=== PATIENT | female | born 1950 | race Caucasian/White ===

== ENCOUNTER → 2018-01-21 | Outpatient (CLI) | payer OTHER ==
[~2018-01-21] MED LIST: AMARYL4 MG PO; ASPIR-TRIN325 MG PO; CIPRODEX OTIC7.5 ML OTIC; COZAAR 25 MG TA25 M1 PO; FENOFIBRATE160 MG PO; GLUCOPHAGE XR500 M1; JANUVIA100 MG; SERTRALINE HCL50 MG; SIMVASTATIN40 MG
--- NOTE | ~2018-01-21 | 2DMMODE ---
[facility] [place] [place] [address] 2 D/M-MODE ECHOCARDIOGRAM Name: ALPHONSO AUSTIN Room #: [facility]#: [id number] Admission: 01/21/18 Attend Phys: Boy Rogel MD Discharge: Date of : 46 Date of Service: 01/21/18 1314 Report #: [id number] THIS REPORT FOR: //name// APPROVED REPORT Study performed: 01/21/2018 11:00:49 EXAM: Comprehensive 2D, Doppler, and color-flow Echocardiogram Patient Location: Out-Patient Status: routine BSA: 1.61 HR: 60 bpm BP: 150/70 mmHg Other Information Study Quality: Good Indications Diabetes CAD Hypertension/HDD 2D Dimensions RVDd: 26.04 mm IVSd: 12.65 (7-11mm) LVOT Diam: 18.69 (18-24mm) LVDd: 48.67 mm PWd: 13.03 (7-11mm) Ascending Ao: 30.12 (22-36mm) LVDs: 33.75 (25-40mm) Aortic Root: 27.12 mm IVC: 18.00 mm Volumes Left Atrial Volume (Systole) Single Plane 4CH: 29.28 mL Single Plane 2CH: 59.50 mL LA ESV Index: 29.00 mL/m2 Aortic Valve AoV Peak Pravin.: 1.73 m/s AO Peak Gr.: 11.94 mmHg LVOT Max P.02 mmHg LVOT Max V: 1.00 m/s KELLY Vmax: 1.59 cm2 AI Vmax: 4.58 m/s AI [place]: 2.78 m/s2 AI PHT: 477.72 ms [facility] [place] [address] 2 D/M-MODE ECHOCARDIOGRAM Name: ALPHONSO AUSTIN Room #: [facility]#: [id number] Admission: 01/21/18 Attend Phys: Boy Rogel MD Discharge: Date of : 46 Date of Service: 01/21/18 1314 Report #: [id number] Mitral Valve E/A Ratio: 0.6 MV Decel. Time: 240.85 ms MV E Max Pravin.: 0.76 m/s MV A Pravin.: 1.30 m/s MV PHT: 69.85 ms IVRT: 110.73 ms Pulmonary Valve PV Peak Pravin.: 1.07 m/s PV Peak Gr.: 4.56 mmHg Pulmonary Vein P Vein S: 0.65 m/s P Vein A: 0.21 m/s P Vein D: 0.42 m/s P Vein A Dur.: 107.3 msec P Vein S/D Ratio: 1.55 Tricuspid Valve TR Peak Pravin.: 2.20 m/s RAP Estimate: 5.00 mmHg TR Peak Gr.: 19.40 mmHg PA Pressure: 24.00 mmHg Left Ventricle The left ventricle is normal size. Mild concentric left ventricular hypertrophy. The left ventricular systolic function is normal. The left ventricular ejection fraction is within the normal range. LVEF is 55-60%. Mild diastolic dysfunction is present (impaired relaxation pattern). Right Ventricle The right ventricle is normal size. The right ventricular systolic function is normal. Atria The left atrium size is normal. The right atrium size is normal. Aortic Valve The aortic valve is normal in structure. Mild aortic regurgitation. There is no aortic valvular stenosis. Mitral Valve The mitral valve is normal in structure. Mild to moderate mitral regurgitation. No evidence of mitral valve stenosis. Tricuspid Valve The tricuspid valve is normal in structure. Trace tricuspid [facility] [address] [address] 2 D/M-MODE ECHOCARDIOGRAM Name: ALPHONSO AUSTIN Room #: [facility]#: [id number] Admission: 01/21/18 Attend Phys: Boy Rogel MD Discharge: Date of : 46 Date of Service: 01/21/18 1314 Report #: [id number] regurgitation. PAP is estimated at 24 mmHg. Pulmonic Valve The pulmonary valve is normal in structure. There is no pulmonic valvular regurgitation. Great Vessels The aortic root is normal in size. IVC is normal in size and collapses >50% with inspiration. Pericardium There is no pericardial effusion. <Conclusion> The left ventricle is normal size. Mild concentric left ventricular hypertrophy. The left ventricular systolic function is normal. Mild diastolic dysfunction is present (impaired relaxation pattern). The right ventricle is normal size. The left atrium size is normal. Mild aortic regurgitation. Mild to moderate mitral regurgitation. Trace tricuspid regurgitation. PAP is estimated at 24 mmHg. <ELECTRONICALLY SIGNED> By: Boy Rogel MD 01/21/184 13 13 Boy Rogel MD /INF
== END ==
LOC: CV 10:06
DX: I08.0 Rheumatic disorders of both mitral and aortic valves (principal); I10 Essential (primary) hypertension; I25.10 Atherosclerotic heart disease of native coronary artery without angina pectoris; E11.9 Type 2 diabetes mellitus without complications; E78.5 Hyperlipidemia, unspecified; Z87.891 Personal history of nicotine dependence; Z79.4 Long term (current) use of insulin

== ENCOUNTER → 2019-04-17 | Outpatient (CLI) | payer OTHER | LOC: SJCVC 09:36 | DX: R94.31 Abnormal electrocardiogram [ECG] [EKG] (principal); I10 Essential (primary) hypertension; I25.10 Atherosclerotic heart disease of native coronary artery without angina pectoris; E11.9 Type 2 diabetes mellitus without complications; E78.00 Pure hypercholesterolemia, unspecified; Z72.0 Tobacco use; Z79.82 Long term (current) use of aspirin; Z79.84 Long term (current) use of oral hypoglycemic drugs; Z79.899 Other long term (current) drug therapy ==

== ENCOUNTER → 2019-11-12 | Outpatient (CLI) | payer OTHER | LOC: SJCVCIMAG 10-16 09:32 | PROVIDERS: ATTEND Internal Medicine Cardiovascular Disease | DX: I08.3 Combined rheumatic disorders of mitral, aortic and tricuspid valves (principal); R94.31 Abnormal electrocardiogram [ECG] [EKG]; R00.1 Bradycardia, unspecified; I11.9 Hypertensive heart disease without heart failure; I25.10 Atherosclerotic heart disease of native coronary artery without angina pectoris; E78.00 Pure hypercholesterolemia, unspecified; E11.9 Type 2 diabetes mellitus without complications; Z79.899 Other long term (current) drug therapy ==

== ENCOUNTER → 2020-05-17 | Outpatient (CLI) | payer OTHER | LOC: SJCVCIMAG 08:11 | PROVIDERS: ATTEND Internal Medicine Cardiovascular Disease | DX: I25.10 Atherosclerotic heart disease of native coronary artery without angina pectoris (principal); E78.5 Hyperlipidemia, unspecified; E11.9 Type 2 diabetes mellitus without complications; I10 Essential (primary) hypertension; E78.00 Pure hypercholesterolemia, unspecified; R10.9 Unspecified abdominal pain; R06.00 Dyspnea, unspecified; F17.200 Nicotine dependence, unspecified, uncomplicated; Z79.82 Long term (current) use of aspirin; Z79.899 Other long term (current) drug therapy; Z95.1 Presence of aortocoronary bypass graft; Z88.2 Allergy status to sulfonamides; Z88.0 Allergy status to penicillin; Z88.1 Allergy status to other antibiotic agents ==

== ENCOUNTER → 2020-05-24 | Outpatient (CLI) | payer OTHER ==
[~2020-05-24] VITALS: Ht 154.9 cm; Wt 59.4 kg
[~2020-05-24] MED LIST changes: +ACTOS 30 MG TAB30 MG PO; +HYDROCHLOROTHIA25 M1 PO; +LOPRESSOR50 MG PO
[2020-05-24 08:04] VITALS: BP 172/69
--- NOTE | 2020-05-24 10:55 | CATHLAB ---
[facility] [place] [address] INVASIVE PROCEDURE REPORT Name: ALPHONSO AUSTIN Room #: REG [facility]#: [id number] Admission: 05/24/20 Attend Phys: Boy Rogel MD Discharge: Date of : 46 Report #: [id number] THIS REPORT FOR: cc: Liv Mendieta MD, Sharon R. MD Park, Jin S. MD ~ APPROVED REPORT Study performed: 05/24/2020 08:42:32 Patient Details Patient Status: Out-Patient Room #: The patient is a 69 year-old female Event Personnel Boy Rogel Electrical Engineering Teacher, Staci Dubon RTR Monitor, Sherwin Chacon RTR Scrub, Ashly Ash RN combination window installer Performed Art Access - R femoral artery* Left Heart Cath Coronaries, Bypass Grafts 4838022 LHCCORCABG Hemostasis with Manual pressure 80991 Initial Mod Sed Same Phys/QHP Gr5y 651632 61398 Mod Sed Same Phys/QHP Ea [id number] Indication Dyspnea, Positive stress test Risk Factors Hypercholesterolemia, Coronary Artery DiseaseHypertension, Diabetes Tobacco History () Previous Procedures/Diagnoses Previous CABG Procedure Narrative The Right Groin^ was infiltrated with 1% Lidocaine subcutaneous anesthesia. A PINNACLE 4FR Sheath #[id number] sheath was inserted into the RFA^. Coronary angiography was performed using coronary diagnostic catheters. The right coronary system was accessed and visualized with a JR4 catheter. The left coronary system was accessed and visualized with a JL4 catheter. The left ventricle was accessed and visualized with a PIGTAIL catheter. Hemostasis was obtained with manual pressure following sheath removal without any complications. The patient tolerated the procedure well and there were no [facility] [address] [place] [address] INVASIVE PROCEDURE REPORT Name: ALPHONSO AUSTIN Room #: REG [facility]#: [id number] Admission: 05/24/20 Attend Phys: Boy Rogel MD Discharge: Date of : 46 Report #: [id number] complications associated with the procedure. There was no hematoma. Intraoperative Conscious Sedation Sedation start time: 905 Case end Time: 939 Fentanyl 50 mcg Versed 1 mg Fluoro Time: 5.40 minutes Dose: DAP 4717.90 cGycm2 675 mGy Contrast Type and Amount: Omnipaque 50 ml Coronary Angiography The patient's coronary anatomy is co- dominant. [place] Artery Percent Stenosis Left Main: % Prox LAD: 100 % Mid/Distal LAD: % Circumflex: 100 % RCA: 100 % Ramus: % Diagnostic Cath LAD There is a patent CAMARILLO graft with an end-to-side anastomosis to the mid LAD. The mid and distal elem LAD is patent with no flow-limiting lesions. Diagonal 1 There is a patent sequential SVG with a [id number]-kg-[id number] anastomosis to D1 and end-to-side anastomosis to OM 2. There is a mild stenosis in the midsegment of the vein graft. Circumflex The left circumflex artery is codominant. This vessel is totally occluded in the midsegment, supplies OM1 prior to the obstruction. OM1 This vessel is patent with no flow-limiting lesions. OM2 This vessel is filled from the sequential SVG to D1/OM 2. Right Coronary The SVG to the distal RCA is completely occluded. R PDA This vessel fills via collateral circulation. Left Ventriculography Left Ventriculography was not performed. Ejection Fraction was 55-60% based off patient's Nuclear Cardiac Stress Test. An LVEDP was measured and there is no gradient across the outflow tract. Hemodynamics The aortic pressure is 174/75 mmHg with a mean of 102 mmHg. The left ventricular pressure is 184/15 mmHg with a mean of mmHg. The left ventricular end diastolic pressure is 16 mmHg. Conclusion [facility] [address] [place] [address] INVASIVE PROCEDURE REPORT Name: ALPHONSO AUSTIN Nia Room #: REG [facility]#: [id number] Admission: 05/24/20 Attend Phys: Boy Rogel MD Discharge: Date of : 46 Report #: [id number] 1. There is a patent CAMARILLO graft to the LAD. 2. There is a patent sequential SVG to the first Diagonal artery and second OM artery. 3. The left circumflex artery is a codominant vessel, fills OM1 with no flow-limiting lesions. 4. The SVG to the distal RCA is occluded. The PDA is filled via collateral circulation. 5. There is normal LV systolic function. 6. Recommend guideline directed medical therapy and risk factor management. <ELECTRONICALLY SIGNED> By: Boy Rogel MD 05/24/20 1055 1055 1055 Boy Rogel MD /INF
== END | disposition home or self-care (01) ==
LOC: CATH 07:32
PROVIDERS: ATTEND Internal Medicine Cardiovascular Disease
DX: R94.39 Abnormal result of other cardiovascular function study (principal); R06.00 Dyspnea, unspecified; I25.810 Atherosclerosis of coronary artery bypass graft(s) without angina pectoris; I25.2 Old myocardial infarction; I10 Essential (primary) hypertension; E78.00 Pure hypercholesterolemia, unspecified; E11.9 Type 2 diabetes mellitus without complications; F17.210 Nicotine dependence, cigarettes, uncomplicated; Z98.890 Other specified postprocedural states; Z79.899 Other long term (current) drug therapy; Z95.1 Presence of aortocoronary bypass graft; Z88.0 Allergy status to penicillin; Z88.2 Allergy status to sulfonamides

== ENCOUNTER 2020-05-28 19:21 | Emergency (ER) | payer OTHER ==
[~2020-05-28] VITALS: Ht 154.9 cm; Wt 59.4 kg
[2020-05-28] MEDS ORDERED: BENADRYL25 MG PO (20:45)
[2020-05-28] MEDS ORDERED: PREDNISONE 20 M20 MG PO (20:45)
[2020-05-28 20:56] VITALS: BP 121/73
== END 2020-05-28 20:56 | disposition home or self-care (01) ==
LOC: ER 19:21
DX: T78.40XA Allergy, unspecified, initial encounter (principal); I10 Essential (primary) hypertension; E11.9 Type 2 diabetes mellitus without complications; F17.210 Nicotine dependence, cigarettes, uncomplicated; Z79.84 Long term (current) use of oral hypoglycemic drugs; Z79.82 Long term (current) use of aspirin; Z79.899 Other long term (current) drug therapy; Z88.0 Allergy status to penicillin; Z88.2 Allergy status to sulfonamides; Y92.89 Other specified places as the place of occurrence of the external cause

== ENCOUNTER → 2020-12-17 | Outpatient (CLI) | payer OTHER ==
[~2020-12-17] MED LIST changes: +BENADRYL25 MG PO; +PREDNISONE 20 M20 MG PO
== END ==
LOC: SJCVC 10:31
PROVIDERS: ATTEND Internal Medicine Cardiovascular Disease
DX: R94.31 Abnormal electrocardiogram [ECG] [EKG] (principal); I10 Essential (primary) hypertension; I25.10 Atherosclerotic heart disease of native coronary artery without angina pectoris; E11.9 Type 2 diabetes mellitus without complications; E78.00 Pure hypercholesterolemia, unspecified; F17.200 Nicotine dependence, unspecified, uncomplicated; Z82.49 Family history of ischemic heart disease and other diseases of the circulatory system; Z88.0 Allergy status to penicillin; Z88.2 Allergy status to sulfonamides; Z88.8 Allergy status to other drugs, medicaments and biological substances; Z79.82 Long term (current) use of aspirin; Z79.84 Long term (current) use of oral hypoglycemic drugs; Z79.899 Other long term (current) drug therapy

== ENCOUNTER 2021-03-18 21:59 | Inpatient (IN) | payer OTHER ==
[~2021-03-18] VITALS: Ht 160 cm; Wt 57.2 kg
[2021-03-18 22:00] VITALS: BP 228/97
[2021-03-18 22:26] LABS: ABSOLUTE NEUTROPHILS 6.5 thou/uL (1.4-8.2); BASOPHILS 0.7 % (0.0-2.0); EOSINOPHILS 2.7 % (0.0-3.0); HEMATOCRIT 45.7 % (37.0-47.0); HEMOGLOBIN 15.3 gm/dL (12.0-15.0); LYMPHOCYTES 24.4 % (24.0-44.0); MCH 29.1 pg (26.0-34.0); MCHC 33.5 g/dL (28.0-37.0); MONOCYTES 7.7 % (1.0-8.0); PLATELET COUNT 237 thou/uL (150-400); POLYS 64.5 % (36.0-66.0); RBC 5.25 mil/uL (4.20-5.00)
[2021-03-18 22:36] LABS: CALCIUM 9.7 mg/dL (8.5-10.1); CREATININE 1.1 mg/dL (0.6-1.0); POTASSIUM 3.5 mmol/L (3.5-5.1)
[2021-03-18 22:47] LABS: ALBUMIN 4.2 g/dL (3.4-5.0); MAGNESIUM 1.8 mg/dL (1.8-2.4); TOTAL BILIRUBIN 0.5 mg/dL (0.2-1.0); TOTAL PROTEIN 7.4 g/dL (6.4-8.2)
--- NOTE | 2021-03-18 23:59 | NUR ---
CELI AT BEDSIDE. CAN BE REACHED AT [phone]
[2021-03-19] MEDS ORDERED: fenofibrate PO (00:06)
[2021-03-19] MEDS ORDERED: METFORMIN PO (00:07)
[2021-03-19] MEDS ORDERED: ZOLOFT50 M1 PO (00:07)
[2021-03-19] MEDS ORDERED: GLIMEPIRIDE1 MG PO (00:08)
[2021-03-19 05:14] LABS: CHOLESTEROL 125 mg/dL (<200); HDL CHOLESTEROL 52 mg/dL (>40); LDL CHOLESTEROL 51 mg/dL (<100); TC:HDL 2.4 Ratio (Not establshd); TRIGLYCERIDE 111 mg/dL (<150); VLDL 22 mg/dL (<40)
[2021-03-19 05:15] LABS: SERUM ASSESSMENT Clear
[2021-03-19 09:30] VITALS: BP 149/100
--- NOTE | 2021-03-19 11:30 | EKG ---
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1950 Requested By: Delilah Robbins Order Number: [id number] MD: Boy Rogel Measurements Intervals [place] Rate: 72 P: 31 NM: 136 QRS: 35 QRSD: 104 T: 22 QT: 405 QTc: 444 Interpretive Statements Sinus rhythm Multiform ventricular premature complexes Probable left atrial enlargement Borderline repolarization abnormality Compared to ECG 07/03/2014 09:46:49 Ventricular premature complex(es) now present T-wave abnormality no longer present Prolonged QT interval no longer present Electronically Signed On 03-19-2021 11:30:33 [employer]OD AND BEVERAGE CONTROLLER by Boy Rogel [email or web address] <ELECTRONICALLY SIGNED> By: Boy Rogel MD 03/19/21 1130 04 04 Boy Rogel MD /[facility]
[2021-03-19 12:00] VITALS: BP 160/64
--- NOTE | 2021-03-19 12:45 | 2DMMODE ---
[facility] [place] [address] 2 D/M-MODE ECHOCARDIOGRAM Name: ADAMARIS AUSTINFANY Trimble Room #: 200-I ADM IN .R.#: [id number] Admission: 03/18/21 Attend Phys: Eddie Guadalupe MD Discharge: Date of : 46 Report #: [id number] THIS REPORT FOR: cc: Liv Mendieta MD, Sharon R. MD Park, Jin S. MD ~ APPROVED REPORT Study performed: 03/19/2021 10:12:09 EXAM: Comprehensive 2D, Doppler, and color-flow Echocardiogram Patient Location: In-Patient Room #: 200 Status: stat BSA: 1.59 HR: 57 bpm BP: 115/77 mmHg Rhythm: NSR Other Information Study Quality: Good Risk Factors: Cardiac Risk Factors: HTN, Smoking Indications Diabetes CAD Chest Pain Hypertension/HDD 2D Dimensions IVSd: 11.15 (7-11mm) LVOT Diam: 19.16 (18-24mm) LVDd: 43.57 mm PWd: 12.73 (7-11mm) Ascending Ao: 29.83 (22-36mm) LVDs: 32.59 (25-40mm) Left Atrium: 31.80 (27-40mm) Aortic Root: 27.52 mm Volumes Left Atrial Volume (Systole) Single Plane 4CH: 52.58 mL Single Plane 2CH: 33.88 mL Biplane LA Volume: 45.00 mL LA ESV Index: 29.00 mL/m2 [facility] [place] [address] [place] [address] 2 D/M-MODE ECHOCARDIOGRAM Name: ALPHONSO AUSTIN Room #: 200-I [facility].#: [id number] Admission: 03/18/21 Attend Phys: Eddie Guadalupe MD Discharge: Date of : 46 Report #: [id number] Aortic Valve AoV Peak Pravin.: 2.08 m/s AO Peak Gr.: 17.27 mmHg LVOT Max P.64 mmHg AO Mean Gr.: 10.39 mmHg LVOT Mean P.17 mmHg AO V2 Mean: 1.48 m/s LVOT Max V: 0.95 m/s AO V2 VTI: 47.80 cm LVOT Mean V: 0.69 m/s KELLY (VTI): 1.29 cm2 LVOT V1 VTI: 21.47 cm KELLY Vmax: 1.32 cm2 SV (LVOT): 61.89 mL Mitral Valve ERO: 18.50 mm2 E/A Ratio: 0.8 MV Decel. Time: 4026.44 ms MV E Max Pravin.: 0.56 m/s MV A Pravin.: 0.73 m/s MV Max Pravin.: 5.47 m/s MR Radius: 0.41 cm MV PHT: 1167.67 ms MR Als. Pravin: 0.95 m/s MR Flow: 101.15 mL/s IVRT: 96.89 ms Pulmonary Valve PV Peak Pravin.: 0.94 m/s PV Peak Gr.: 3.53 mmHg Pulmonary Vein P Vein S: 0.41 m/s P Vein A: 0.19 m/s P Vein D: 0.34 m/s P Vein A Dur.: 106.1 msec P Vein S/D Ratio: 1.21 Tricuspid Valve TR Peak Pravin.: 1.66 m/s RAP Estimate: 7.00 mmHg TR Peak Gr.: 11.01 mmHg RVSP: 18.00 mmHg Left Ventricle The left ventricle is normal size. There is normal LV segmental wall motion. There is normal left ventricular wall thickness. Left ventricular systolic function is normal. The left ventricular ejection fraction is within the normal range. LVEF is 50-55%. Mild diastolic dysfunction is present (impaired relaxation pattern). Right Ventricle The right ventricle is normal size. The right ventricular [place] [address] 2 D/M-MODE ECHOCARDIOGRAM Name: ALPHONSO AUSTIN Room #: 200-I [facility] IN M.R.#: [id number] Admission: 03/18/21 Attend Phys: Eddie Guadalupe MD Discharge: Date of : 46 Report #: [id number] Atria Left atrium is mildly dilated. The right atrium size is normal. Aortic Valve No aortic regurgitation is present. There is no aortic valvular stenosis. Mitral Valve The mitral valve is mildly thickened. Mild to moderate mitral regurgitation. No evidence of mitral valve stenosis. Tricuspid Valve The tricuspid valve is normal in structure. Trace tricuspid regurgitation. PAP 18 mmHg Pulmonic Valve The pulmonary valve is normal in structure. There is no pulmonic valvular regurgitation. Great Vessels The aortic root is normal in size. IVC is normal in size and collapses >50% with inspiration. Pericardium There is no pericardial effusion. <Conclusion> The left ventricle is normal size. There is normal left ventricular wall thickness. Left ventricular systolic function is normal. Mild diastolic dysfunction is present (impaired relaxation pattern). The right ventricle is normal size. Left atrium is mildly dilated. There is no aortic valvular stenosis. Mild to moderate mitral regurgitation. Trace tricuspid regurgitation. <ELECTRONICALLY SIGNED> By: Boy Rogel MD 03/19/21 1245 1245 1245 Boy Rogel MD /INF
[2021-03-19 14:04] VITALS: BP 160/64
[2021-03-20 05:37] LABS: GLYCOHEMOGLOBIN (HGB A1C) 5.5 % (4.8-5.6)
== END 2021-03-19 15:20 | disposition home or self-care (01) | DRG 392 ==
LOC: ER 21:59 → EROBS 23:13 → 2N 03-19 09:27
PROVIDERS: Nurse Practitioner Family; ADMIT Hospitalist; ATTEND Hospitalist
DX: K21.9 Gastro-esophageal reflux disease without esophagitis (principal); I16.0 Hypertensive urgency; I25.10 Atherosclerotic heart disease of native coronary artery without angina pectoris; Z20.822 Contact with and (suspected) exposure to COVID-19; E11.9 Type 2 diabetes mellitus without complications; F32.9 Major depressive disorder, single episode, unspecified; I10 Essential (primary) hypertension; Z88.0 Allergy status to penicillin; Z88.2 Allergy status to sulfonamides; Z95.1 Presence of aortocoronary bypass graft; Z82.49 Family history of ischemic heart disease and other diseases of the circulatory system; Z87.891 Personal history of nicotine dependence; Z79.82 Long term (current) use of aspirin; Z79.899 Other long term (current) drug therapy

== ENCOUNTER → 2021-04-04 | Outpatient (CLI) | payer OTHER ==
[~2021-04-04] MED LIST changes: +GLIMEPIRIDE1 MG PO; +METFORMIN PO; +ZOLOFT50 M1 PO; +fenofibrate PO
== END ==
LOC: SJCVC 15:01
PROVIDERS: ATTEND Internal Medicine Cardiovascular Disease
DX: R94.31 Abnormal electrocardiogram [ECG] [EKG] (principal); I25.10 Atherosclerotic heart disease of native coronary artery without angina pectoris; I10 Essential (primary) hypertension; I34.0 Nonrheumatic mitral (valve) insufficiency; E78.00 Pure hypercholesterolemia, unspecified; E11.9 Type 2 diabetes mellitus without complications; F17.210 Nicotine dependence, cigarettes, uncomplicated; Z79.82 Long term (current) use of aspirin; Z79.899 Other long term (current) drug therapy; Z82.49 Family history of ischemic heart disease and other diseases of the circulatory system; Z88.0 Allergy status to penicillin; Z88.2 Allergy status to sulfonamides; Z88.8 Allergy status to other drugs, medicaments and biological substances